=== PATIENT | female | born 1960 | race Caucasian/White ===

== ENCOUNTER → 2017-04-08 | Outpatient (CLI) | payer OTHER ==
--- NOTE | 2017-04-09 13:31 | MM ---
Reason for exam: screening (asymptomatic). Last mammogram was performed 1 year and 5 months ago. History: Patient is postmenopausal. Physical Findings: A clinical breast exam by your physician is recommended on an annual basis and results should be correlated with mammographic findings. MG 3D Screening Mammo W/Cad Bilateral CC, MLO, and XCCL view(s) were taken. Prior study comparison: October 26, 2015, bilateral MG 3d screening mammo w/cad. November 28, 2013, bilateral digital screening mammo w/CAD. The breast tissue is heterogeneously dense. This may lower the sensitivity of mammography. Benign calcifications. There is chronic nodularity in the left breast. No significant changes when compared with prior studies. ASSESSMENT: Benign, BI-RAD 2 RECOMMENDATION: Routine screening mammogram of both breasts in 1 year.
== END | disposition home or self-care (01) ==
LOC: RADMAMWWP 16:15
PROVIDERS: ATTEND Obstetrics & Gynecology
DX: Z12.31 Encounter for screening mammogram for malignant neoplasm of breast (principal)
CPT/HCPCS: 77063; G0202

== ENCOUNTER → 2019-07-09 | Outpatient (CLI) | payer OTHER ==
[2019-07-09 08:30] LABS: Basophils # (A) 0.1 k/uL (0-0.2); Basophils % (A) 1 %; Eosinophils # (A) 0.4 k/uL (0-0.7); Eosinophils % (A) 5 %; HCT 42.8 % (34.0-46.0); HGB 14.3 gm/dL (11.4-16.0); Lymphocytes # (A) 1.2 k/uL (1.0-4.8); Lymphocytes % (A) 16 %; MCH 28.6 pg (25.0-35.0); MCHC 33.3 g/dL (31.0-37.0); MCV 85.9 fL (80.0-100.0); Mean Platelet Volume 7.5; Monocytes # (A) 0.4 k/uL (0-1.0); Monocytes % (A) 5 %; Neutrophils # (A) 5.7 k/uL (1.3-7.7); Neutrophils % (A) 72 %; Platelet Count 300 k/uL (150-450); RBC 4.98 m/uL (3.80-5.40); WBC 7.9 k/uL (3.8-10.6)
[2019-07-09 16:57] LABS: African American GFR (CKD) 109.9 (60.0-200.0); Albumin 4.5 g/dL (3.80-4.90); Albumin/Globulin Ratio 2.5 (1.60-3.17); Anion Gap 10.3 mmol/L (4.00-12.00); Calcium 9.2 mg/dL (8.7-10.3); Carbon Dioxide 24.7 mmol/L (21.6-31.8); Chol/HDL Ratio 3.59; Globulin 1.8 g/dL (1.6-3.3); Potassium 4.7 mmol/L (3.5-5.5); Total Bilirubin 0.5 mg/dL (0.2-1.2); Total Protein 6.3 g/dL (6.2-8.2)
[2019-07-09 17:05] LABS: T4, Free (Free Thyroxine) 1.1 ng/dL (0.80-1.80)
== END | disposition home or self-care (01) ==
LOC: LABWHC1 08:00
PROVIDERS: ATTEND Nurse Practitioner Family
DX: E11.9 Type 2 diabetes mellitus without complications (principal); E87.8 Other disorders of electrolyte and fluid balance, not elsewhere classified; E78.5 Hyperlipidemia, unspecified; D64.9 Anemia, unspecified; R79.9 Abnormal finding of blood chemistry, unspecified
CPT/HCPCS: 36415; 80053; 80061; 82306; 84439; 84443; 85025

== ENCOUNTER 2019-08-14 10:59 | Emergency (ER) | payer OTHER ==
[2019-08-14 11:11] VITALS: BP 147/90; PULSE 85; RESP 16; TEMP 99.1
[2019-08-14] MEDS ORDERED: KETOROLAC 60 MG/2 ML VIAL IM STA (12:17)
[2019-08-14] MEDS ORDERED: DEXAMETHASONE 4 MG TAB PO STA (12:17)
--- NOTE | 2019-08-14 12:19 | ED ---
ENT HPI - General Source: patient Mode of arrival: ambulatory Limitations: no limitations <Mercedes Gould - Last Filed: 08/14/19 19:51> <Jo García - Last Filed: 08/17/19 00:01> - General Chief complaint: ENT Stated complaint: throat pain Time Seen by Provider: 08/14/19 11:14 - History of Present Illness Initial comments: Patient is a 59-year-old female presenting to the emergency Department with complaints of a sore throat that started this morning. Patient states she's been feeling more fatigued yesterday and today. Patient denies fever, chills, chest pain, cough, congestion, abdominal pain, nausea, vomiting. Patient admits to having the flu vaccine approximately 2 weeks ago. Patient denies any recent sick contacts. (Mercedes Gould) - Related Data Home Medications Medication Instructions Recorded Confirmed Antivert Unknown Dose 1 tab PO DAILY PRN 10/20/16 Aspirin [Adult Low Dose Aspirin EC] 81 mg PO DAILY 10/20/16 10/20/16 Atenolol 25 mg PO QAM 10/20/16 10/23/16 Cyanocobalamin [Vitamin B-12] 1 tab PO DAILY 10/20/16 10/23/16 Furosemide 20 mg PO QAM 10/20/16 10/23/16 Lipitor Unknown Dose 80 mg PO HS 10/20/16 10/23/16 Sertraline [Zoloft] 25 mg PO QAM 10/20/16 10/23/16 metFORMIN HCL [Glucophage] 850 mg PO QAM 10/20/16 10/23/16 Allergies Allergy/AdvReac Type Severity Reaction Status Date / Time No Known Allergies Allergy Verified 08/14/19 11:11 Review of Systems ROS Other: All systems not noted in ROS Statement are negative. <Mercedes Gould - Last Filed: 08/14/19 19:51> ROS Other: All systems not noted in ROS Statement are negative. <Jo García - Last Filed: 08/17/19 00:01> ROS Statement: Those systems with pertinent positive or pertinent negative responses have been documented in the HPI. Past Medical History Past Medical History: Diabetes Mellitus, Hyperlipidemia, Hypertension Additional Past Medical History / Comment(s): COLON POLYPS. VERTIGO. DIVERTICULITIS. History of Any Multi-Drug Resistant Organisms: None Reported Past Surgical History: Section, Cholecystectomy Past Anesthesia/Blood Transfusion Reactions: Family History of Problems w/ Anesthesia, Motion Sickness Additional Past Anesthesia/Blood Transfusion Reaction / Comment(s): BLOOD NEPHEW HAS MALIGNANT HYPERTHERMIA. Past Psychological History: Depression Smoking Status: Former smoker Past Alcohol Use History: Rare Past Drug Use History: None Reported <Mercedes Gould - Last Filed: 08/14/19 19:51> General Exam Limitations: no limitations <Mercedes Gould - Last Filed: 08/14/19 19:51> - General Exam Comments Initial Comments: GENERAL: Well-appearing, well-nourished and in no acute distress. HEAD: Atraumatic, normocephalic. EYES: Pupils equal round and reactive to light, extraocular movements intact, sclera anicteric, conjunctiva are normal. ENT: TMs normal, nares patent, oropharynx slightly erythematous without exudates. Moist mucous membranes. NECK: Normal range of motion, supple without lymphadenopathy or JVD. LUNGS: Breath sounds clear to auscultation bilaterally and equal. No wheezes rales or rhonchi. HEART: Regular rate and rhythm without murmurs, rubs or gallops. ABDOMEN: Soft, nontender, normoactive bowel sounds. No guarding, no rebound. No masses appreciated. : Deferred EXTREMITIES: Normal range of motion, no pitting or edema. No clubbing or cyanosis. NEUROLOGICAL: Cranial nerves II through XII grossly intact. Normal speech, normal gait. PSYCH: Normal mood, normal affect. SKIN: Warm, Dry, normal turgor, no rashes or lesions noted. (Mercedes Gould) Course Vital Signs 08/14/19 11:10 Temperature 99.1 F Pulse Rate 85 Respiratory 16 Rate Blood Pressure 147/90 O2 Sat by Pulse 96 Oximetry Medical Decision Making <Mercedes Gould - Last Filed: 08/14/19 19:51> <Jo García - Last Filed: 08/17/19 00:01> - Medical Decision Making Patient is a 59-year-old female presenting with sore throat 1 day. Vital signs are stable, afebrile. Strep is negative today. Discussed with patient is most likely a viral pharyngitis. Patient was given a Toradol and course of steroids for pain relief. Patient is stable for discharge at this time. She is in agreement this plan of care. Patient will follow up with PCP next week if symptoms persist. Return parameters were discussed with the patient she verbalized understanding. Case discussed with Dr. García. (Mercedes Gould) I was available for consultation in the emergency department. The history and physical exam were done by the midlevel provider. I was consulted for this patients care. I reviewed the case with the midlevel provider and based on their presentation of the patient, I agree with the assessment, medical decision making and plan of care as documented. Chart was dictated using [employer] dictation software. Attempts were made to correct any dictation errors however some typographical errors may persist. (Jo García) - Lab Data Lab Results 08/14/19 Range/Units 11:32 Group A Strep Rapid Negative (Negative) Disposition Is patient prescribed a controlled substance at d/c from ED?: No <Mercedes Gould - Last Filed: 08/14/19 19:51> <Jo García - Last Filed: 08/17/19 00:01> Clinical Impression: Acute viral pharyngitis Disposition: HOME SELF-CARE Condition: Stable Instructions (If sedation given, give patient instructions): Pharyngitis (ED) Additional Instructions: Please return to the Emergency Department if symptoms worsen or any other concerns. Alternate between Motrin and Tylenol for pain relief. Referrals: Cherelle Figueroa MD [Primary Care Provider] - 1-2 days
== END 2019-08-14 12:32 | disposition home or self-care (01) ==
LOC: EC 10:59
DX: J02.8 Acute pharyngitis due to other specified organisms (principal); B97.89 Other viral agents as the cause of diseases classified elsewhere; E11.9 Type 2 diabetes mellitus without complications; E78.5 Hyperlipidemia, unspecified; I10 Essential (primary) hypertension; F32.9 Major depressive disorder, single episode, unspecified; Z79.82 Long term (current) use of aspirin; Z79.84 Long term (current) use of oral hypoglycemic drugs; Z79.899 Other long term (current) drug therapy; Z87.891 Personal history of nicotine dependence
CPT/HCPCS: 87081; 87430; 99283; 96372; J8540; J1885

== ENCOUNTER → 2020-09-07 | Outpatient (CLI) | payer OTHER ==
--- NOTE | 2020-09-11 08:39 | MM ---
Reason for exam: screening (asymptomatic). Last mammogram was performed 1 year and 7 months ago. History: Patient is postmenopausal. Physical Findings: A clinical breast exam by your physician is recommended on an annual basis and results should be correlated with mammographic findings. MG 3D Screening Mammo W/Cad Bilateral CC and MLO view(s) were taken. Prior study comparison: February 03, 2019, bilateral MG 3d screening mammo w/cad. April 08, 2017, bilateral MG 3d screening mammo w/cad. There are scattered fibroglandular densities. No significant changes when compared with prior studies. ASSESSMENT: Negative, BI-RAD 1 RECOMMENDATION: Routine screening mammogram of both breasts in 1 year.
== END | disposition home or self-care (01) ==
LOC: RADMAMWWP 07:00
PROVIDERS: ATTEND Internal Medicine
DX: Z12.31 Encounter for screening mammogram for malignant neoplasm of breast (principal)
CPT/HCPCS: 77063; 77067

== ENCOUNTER → 2021-10-08 | Outpatient (CLI) | payer OTHER ==
--- NOTE | 2021-10-10 11:51 | MM ---
Reason for exam: screening (asymptomatic). Last mammogram was performed 1 year and 1 month ago. History: Patient is postmenopausal. Physical Findings: A clinical breast exam by your physician is recommended on an annual basis and results should be correlated with mammographic findings. MG 3D Screening Mammo W/Cad Bilateral CC and MLO view(s) were taken. Prior study comparison: September 07, 2020, bilateral MG 3d screening mammo w/cad. February 03, 2019, bilateral MG 3d screening mammo w/cad. There are scattered fibroglandular densities. There is chronic nodularity in the left breast. No significant changes when compared with prior studies. ASSESSMENT: Benign, BI-RAD 2 RECOMMENDATION: Routine screening mammogram of both breasts in 1 year.
== END | disposition home or self-care (01) ==
LOC: RADMAMWWP 15:43
PROVIDERS: ATTEND Family Medicine
DX: Z12.31 Encounter for screening mammogram for malignant neoplasm of breast (principal)
CPT/HCPCS: 77063; 77067

== ENCOUNTER → 2022-12-09 | Outpatient (CLI) | payer OTHER ==
--- NOTE | 2022-12-10 09:01 | MM ---
Reason for Exam: Screening (asymptomatic). Last mammogram was performed 1 year(s) and 2 month(s) ago. Patient History: Menarche at age 12. First Full-Term at age 29. Postmenopausal. Risk Values: Katie 5 year model risk: 1.7%. NCI Lifetime model risk: 7.7%. Prior Study Comparison: 02/03/2019 Bilateral Screening Mammogram, [facility]. 09/07/2020 Bilateral Screening Mammogram, [facility]. 10/08/2021 Bilateral Screening Mammogram, [facility]. Tissue Density: The breast tissue is almost entirely fat. Findings: Analyzed By CAD. There is no suspicious group of microcalcifications or new suspicious mass in either breast. Overall Assessment: Negative, BI-RAD 1 Management: Screening Mammogram of both breasts in 1 year. A clinical breast exam by your physician is recommended on an annual basis and results should be correlated with mammographic findings. [facility] will attempt to contact patient to return for supplemental views and ultrasound if indicated. Electronically signed and approved by: Garrison Espinal DO
== END | disposition home or self-care (01) ==
LOC: RADMAMWWP 16:16
PROVIDERS: ATTEND Internal Medicine
DX: Z12.31 Encounter for screening mammogram for malignant neoplasm of breast (principal); Z78.0 Asymptomatic menopausal state
CPT/HCPCS: 77063; 77067

== ENCOUNTER 2023-04-11 06:36 | Emergency (ER) | payer OTHER ==
[2023-04-11 06:41] VITALS: BP 145/86; PULSE 66; RESP 16; TEMP 97.5
[2023-04-11] MEDS ORDERED: ACETAMINOPHEN TAB 500 MG TAB PO STA (07:12)
--- NOTE | 2023-04-11 07:17 | ED ---
General Adult HPI - General Chief complaint: Urogenital Stated complaint: Blood in urine and pain Time Seen by Provider: 04/11/23 07:01 Source: patient, RN notes reviewed, old records reviewed Mode of arrival: ambulatory Limitations: no limitations - History of Present Illness Initial comments: 63-year-old female presenting with lower abdominal discomfort, hematuria. Symptoms began this morning. No associated fever. No vomiting. Patient denies current bowel issues. Pain and discomfort in his bilateral lower abdomen. She has remote history of kidney stones. - Related Data Home Medications Medication Instructions Recorded Confirmed Antivert Unknown Dose 1 tab PO DAILY PRN 10/20/16 Aspirin [Adult Low Dose Aspirin EC] 81 mg PO DAILY 10/20/16 10/20/16 Cyanocobalamin [Vitamin B-12] 1 tab PO DAILY 10/20/16 10/23/16 Furosemide 20 mg PO QAM 10/20/16 10/23/16 Lipitor Unknown Dose 80 mg PO HS 10/20/16 10/23/16 Sertraline [Zoloft] 25 mg PO QAM 10/20/16 10/23/16 atenoloL 25 mg PO QAM 10/20/16 10/23/16 metFORMIN HCL [Glucophage] 850 mg PO QAM 10/20/16 10/23/16 Previous Rx's Medication Instructions Recorded Ibuprofen [Motrin] 600 mg PO Q8HR PRN #24 tab 04/11/23 Tamsulosin [Flomax] 0.4 mg PO DAILY #7 cap 04/11/23 Allergies Allergy/AdvReac Type Severity Reaction Status Date / Time No Known Allergies Allergy Verified 08/14/19 11:11 Review of Systems ROS Statement: Those systems with pertinent positive or pertinent negative responses have been documented in the HPI. ROS Other: All systems not noted in ROS Statement are negative. Past Medical History Past Medical History: Diabetes Mellitus, Hyperlipidemia, Hypertension Additional Past Medical History / Comment(s): COLON POLYPS. VERTIGO. DIVERTICULITIS. History of Any Multi-Drug Resistant Organisms: None Reported Past Surgical History: Section, Cholecystectomy Past Anesthesia/Blood Transfusion Reactions: Family History of Problems w/ Anesthesia, Motion Sickness Additional Past Anesthesia/Blood Transfusion Reaction / Comment(s): BLOOD NEPHEW HAS MALIGNANT HYPERTHERMIA. Past Psychological History: Depression Past Alcohol Use History: Rare Past Drug Use History: None Reported General Exam Limitations: no limitations General appearance: alert, in no apparent distress Head exam: Present: atraumatic, normocephalic Eye exam: Present: normal appearance, PERRL ENT exam: Present: normal exam Neck exam: Present: normal inspection. Absent: tenderness, meningismus Respiratory exam: Present: normal lung sounds bilaterally. Absent: respiratory distress, wheezes Cardiovascular Exam: Present: regular rate, normal rhythm GI/Abdominal exam: Present: soft, tenderness (Bilateral lower abdominal tenderness to palpation, worse on the left). Absent: distended Back exam: Present: normal inspection. Absent: CVA tenderness (R), CVA tenderness (L) Neurological exam: Present: alert, oriented X3, CN II-XII intact. Absent: motor sensory deficit Psychiatric exam: Present: normal affect, normal mood Skin exam: Present: warm, dry, intact. Absent: cyanosis, diaphoretic Course Vital Signs 04/11/23 06:38 Temperature 97.5 F L Pulse Rate 66 Respiratory 16 Rate Blood Pressure 145/86 O2 Sat by Pulse 95 Oximetry Medical Decision Making - Medical Decision Making Was pt. sent in by a medical professional or institution (, PA, [employer], urgent care, hospital, or care home...) When possible be specific @ -[No] Did you speak to anyone other than the patient for history (EMS, parent, family, police, friend...)? What history was obtained from this source @ -[No] Did you review nursing and triage notes (agree or disagree)? Why? @ -[I reviewed and agree with nursing and triage notes] Were old charts reviewed (outside hosp., previous admission, EMS record, old EKG, old radiological studies, urgent care reports/EKG's, care home records)? Report findings @ -[No old charts were reviewed] Differential Diagnosis (chest pain, altered mental status, abdominal pain women, abdominal pain men, vaginal bleeding, weakness, fever, dyspnea, syncope, headache, dizziness, GI bleed, back pain, seizure, CVA, palpatations, mental health, musculoskeletal)? @ -Differential Abdominal Pain Women: Appendicitis, Cholecystitis, diverticulosis, ischemic bowel, pancreatitis, hepatitis, UTI, gastroenteritis, AAA, incarcerated hernia, bowel obstruction, constipation, inflammatory bowel, hepatitis, peptic ulcer disease, splenic infarction, perforated viscus, , kidney stone, placenta abruption, @ -[As above] X-rays interpreted by me (1pt min.). @ -[Negative for acute process CT interpreted by me (1pt min.). @ -CT showing obstructing renal calculus at the left UVJ 5.3 mm. U/S interpreted by me (1pt. min.). @ -[None done] What testing was considered but not performed or refused? (CT, X-rays, U/S, labs)? Why? @ -[None] What meds were considered but not given or refused? Why? @ -[None] Did you discuss the management of the patient with other professionals (professionals i.e. , PA, [employer], lab, RT, psych nurse, criminal justice social worker, novelty dipper, teacher, uniform patrol police officer, manager case management)? Give summary @ -[No] Was smoking cessation discussed for >3mins.? @ -[No] Was critical care preformed (if so, how long)? @ -[No] Were there social determinants of health that impacted care today? How? (Homeles sness, low income, unemployed, alcoholism, drug addiction, transportation, low edu. Level, literacy, decrease access to med. care, senior living, rehab)? @ -[No] Was there de-escalation of care discussed even if they declined (Discuss DNR or withdrawal of care, Hospice)? DNR status @ -[No] What co-morbidities impacted this encounter? (DM, HTN, Smoking, COPD, CAD, Cancer, CVA, ARF, Chemo, Hep., AIDS, mental health diagnosis, sleep apnea, morbid obesity)? @Diabetes Was patient admitted / discharged? Hospital course, mention meds given and route, prescriptions, significant lab abnormalities, going to OR and other pertinent info. @63-year-old female with lower abdominal pain, hematuria. Normal CBC, normal CMP, urinalysis greater than [id number] red cells and calcium oxalate crystals. CT showing obstructing stone 5.3 mm. Patient's pain is improved with Tylenol and Toradol. She will be given a urine strainer and given urology follow-up. Return parameters discussed. Undiagnosed new problem with uncertain prognosis? @ -[No] Drug Therapy requiring intensive monitoring for toxicity (Heparin, Nitro, Insulin, Cardizem)? @ -[No] Were any procedures done? @ -[No] Diagnosis/symptom? @ -Obstructing renal calculus Acute, or Chronic, or Acute on Chronic? @Acute Uncomplicated (without systemic symptoms) or Complicated (systemic symptoms)? @ -Complicated Side effects of treatment? @ -[No] Exacerbation, Progression, or Severe Exacerbation? @ -[No] Poses a threat to life or bodily function? How? (Chest pain, [place], [place], pneumonia, PE, COPD, DKA, ARF, appy, cholecystitis, CVA, Diverticulitis, Homicidal, Suicidal, threat to staff... and all critical care pts) @ -Low-risk - Lab Data Result diagrams: 04/11/23 08:28 04/11/23 08:28 Lab Results 04/11/23 04/11/23 04/11/23 Range/Units 07:00 08:28 08:28 WBC 9.4 (3.8-10.6) k/uL RBC 4.54 (3.80-5.40) m/uL Hgb 13.3 (11.4-16.0) gm/dL Hct 39.5 (34.0-46.0) % MCV 87.0 (80.0-100.0) fL MCH 29.2 (25.0-35.0) pg MCHC 33.6 (31.0-37.0) g/dL RDW 13.7 (11.5-15.5) % Plt Count 229 (150-450) k/uL MPV 8.0 Neutrophils % 79 % Lymphocytes % 8 % Monocytes % 6 % Eosinophils % 4 % Basophils % 1 % Neutrophils # 7.4 (1.3-7.7) k/uL Lymphocytes # 0.8 L (1.0-4.8) k/uL Monocytes # 0.6 (0-1.0) k/uL Eosinophils # 0.4 (0-0.7) k/uL Basophils # 0.1 (0-0.2) k/uL Sodium 138 (137-145) mmol/L Potassium 4.6 (3.5-5.1) mmol/L Chloride 103 (98-107) mmol/L Carbon Dioxide 24 (22-30) mmol/L Anion Gap 11 mmol/L BUN 13 (7-17) mg/dL Creatinine 0.88 (0.52-1.04) mg/dL Est GFR (CKD-EPI)AfAm 81 (>60 ml/min/1.73 sqM) Est GFR (CKD-EPI)NonAf 71 (>60 ml/min/1.73 sqM) Glucose 104 H (74-99) mg/dL Calcium 8.9 (8.4-10.2) mg/dL Total Bilirubin 0.6 (0.2-1.3) mg/dL AST 26 (14-36) U/L ALT 30 (4-34) U/L Alkaline Phosphatase 92 (38-126) U/L Total Protein 6.7 (6.3-8.2) g/dL Albumin 3.9 (3.5-5.0) g/dL Urine Color Red Urine Appearance Cloudy H (Clear) Urine pH 5.0 (5.0-8.0) Ur Specific Elmer 1.019 (1.001-1.035) Urine Protein 1+ H (Negative) Urine Glucose (UA) Negative (Negative) Urine Ketones Negative (Negative) Urine Blood Large H (Negative) Urine Nitrite Negative (Negative) Urine Bilirubin Negative (Negative) Urine Urobilinogen <2.0 (<2.0) mg/dL Ur Leukocyte Esterase Small H (Negative) Urine RBC >182 H (0-5) /hpf Urine WBC 4 (0-5) /hpf Calcium Oxalate Crystal Occasional H (None) /hpf Hyaline Casts 14 H (0-2) /lpf Urine Mucus Occasional H (None) /hpf Disposition Clinical Impression: Hydronephrosis with renal and ureteral calculus obstruction, Kidney stone Disposition: HOME SELF-CARE Condition: Good Instructions (If sedation given, give patient instructions): Renal Colic (ED), Kidney Stones (ED) Prescriptions: Tamsulosin [Flomax] 0.4 mg PO DAILY #7 cap Ibuprofen [Motrin] 600 mg PO Q8HR PRN #24 tab PRN Reason: Pain Is patient prescribed a controlled substance at d/c from ED?: No Referrals: Nonstaff,Physician [REFERRING] - 1-2 days Jack Mays MD [STAFF PHYSICIAN] - 1-2 days Time of Disposition: 09:16
[2023-04-11 07:40] LABS: Appearance,Urine Cloudy (Clear); Bilirubin,Urine Negative (Negative); Blood,Urine Large (Negative); Calcium Oxalate Crystals,Urine Occasional /hpf; Color,Urine Red; Glucose,Urine (UA) Negative (Negative); Hyaline Casts,Urine 14 /lpf (0-2); Ketones,Urine Negative (Negative); Leukocyte Esterase,Urine Small (Negative); Mucus,Urine Occasional /hpf; Nitrite,Urine Negative (Negative); Protein,Urine 1+ (Negative); RBC,Urine >182 /hpf (0-5); Specific Gravity,Urine 1.019 (1.001-1.035); Urobilinogen,Urine <2.0 mg/dL (<2.0); WBC,Urine 4 /hpf (0-5)
--- NOTE | 2023-04-11 07:49 | CT ---
EXAMINATION TYPE: CT abdomen pelvis wo con DATE OF EXAM: 04/11/2023 COMPARISON: 214 HISTORY: painful urination with blood. CT DLP: 1459.4 mGycm Examination of the solid and hollow viscera is limited given the lack of contrast. FINDINGS: LUNG BASES: No evidence for nodule. No evidence for infiltrate. LIVER/GB: Gallbladder surgically absent. No space-occupying hepatic lesion. PANCREAS: No pancreatic mass identified. No inflammatory process seen. SPLEEN: No evidence for splenomegaly. No intrasplenic lesions seen. ADRENALS: No adrenal nodules identified. No evidence for thickening. KIDNEYS: No evidence for renal mass. There is [id number] left-sided hydroureteronephrosis secon kassie to the distal left ureteral 5.3 mm calculus which resides approximately 1 cm from the level of U VJ. No additional calculi seen. BOWEL: Appendix has a normal appearance. No evidence of bowel obstruction. No inflammatory process. Lymph nodes: No evidence for adenopathy greater than 1 cm. Abdominal aorta: Atheromatous changes seen. No evidence for aneurysm. Genital organs: No significant abnormality. Other: No significant abnormality. IMPRESSION: There is [id number] left-sided hydroureteronephrosis secondary to the distal left ureteral 5.3 mm calculus which resides approximately 1 cm from the level of UVJ.
[2023-04-11] MEDS ORDERED: KETOROLAC 15 MG/ML 1 ML VIAL IM STA (07:51)
[2023-04-11] MEDS ORDERED: SODIUM CHLORIDE 0.9% 1,000 ML IV ONE (07:53)
[2023-04-11] MEDS ORDERED: ONDANSETRON 4 MG/2 ML VIAL IVP STA (07:53)
[2023-04-11 08:44] LABS: Basophils # (A) 0.1 k/uL (0-0.2); Basophils % (A) 1 %; Eosinophils # (A) 0.4 k/uL (0-0.7); Eosinophils % (A) 4 %; HCT 39.5 % (34.0-46.0); HGB 13.3 gm/dL (11.4-16.0); Lymphocytes # (A) 0.8 k/uL (1.0-4.8); Lymphocytes % (A) 8 %; MCH 29.2 pg (25.0-35.0); MCHC 33.6 g/dL (31.0-37.0); Monocytes # (A) 0.6 k/uL (0-1.0); Monocytes % (A) 6 %; Neutrophils # (A) 7.4 k/uL (1.3-7.7); Neutrophils % (A) 79 %; Platelet Count 229 k/uL (150-450); RBC 4.54 m/uL (3.80-5.40); RDW 13.7 % (11.5-15.5); WBC 9.4 k/uL (3.8-10.6)
--- NOTE | 2023-04-11 08:51 | XR ---
EXAMINATION TYPE: XR KUB DATE OF EXAM: 04/11/2023 COMPARISON: NONE HISTORY: Pain TECHNIQUE: Single supine KUB image of the abdomen is obtained FINDINGS: Small bowel demonstrates no evidence for dilatation or air fluid levels. Gas and fecal material is seen in non-distended colon. No convincing evidence for pneumoperitoneum. No unusual calcifications. The lung bases are clear. The osseous structures are intact. IMPRESSION: 1. Overall nonobstructive bowel gas pattern.
[2023-04-11 09:02] LABS: Albumin 3.9 g/dL (3.5-5.0); Calcium 8.9 mg/dL (8.4-10.2); Potassium 4.6 mmol/L (3.5-5.1); Total Bilirubin 0.6 mg/dL (0.2-1.3); Total Protein 6.7 g/dL (6.3-8.2)
== END 2023-04-11 09:30 | disposition home or self-care (01) ==
LOC: EC 06:36
DX: N13.2 Hydronephrosis with renal and ureteral calculous obstruction (principal); E11.9 Type 2 diabetes mellitus without complications; I10 Essential (primary) hypertension; E78.5 Hyperlipidemia, unspecified; F32.A Depression, unspecified; Z79.84 Long term (current) use of oral hypoglycemic drugs; Z79.82 Long term (current) use of aspirin; Z79.899 Other long term (current) drug therapy; Z90.49 Acquired absence of other specified parts of digestive tract
CPT/HCPCS: 36415; 80053; 85025; 81001; 74018; 74176; 99284; 96374; 96361; 96372; J2405; J1885

== ENCOUNTER → 2023-07-02 | Outpatient (CLI) | payer OTHER ==
[2023-07-02 15:10] LABS: African American GFR (CKD) >90 (>60 ml/min/1.73 sqM); Blood Urea Nitrogen 15 mg/dL (7-17); Non-African American GFR(CKD) 82 (>60 ml/min/1.73 sqM)
--- NOTE | 2023-07-03 11:52 | CT ---
EXAMINATION TYPE: CT urogram wo/w con DATE OF EXAM: 07/02/2023 COMPARISON: 04/11/2023 INDICATION: ACUTE CYSTITIS WITH HEMATURIA AND UTI DLP: 4644.80 mGycm, Automated exposure control for dose reduction was used. CONTRAST: 90ML mL of Isovue 370. Study performed without Oral Contrast TECHNIQUE: Axial images were obtained from above the diaphragm to the pubic rami in the axial plane a t 5 mm thick sections. Reconstructed images are reviewed on the computer in the coronal plane. FINDINGS: Limited CT sections are obtained the lung bases. The lung bases are clear. CT ABDOMEN: Liver: Normal Spleen: Normal splenule is anterior to the spleen Pancreas: Normal Adrenal glands: The adrenal glands are normal. Gallbladder: Surgically absent Kidneys: No masses are evident. No hydronephrosis is present. No cysts are present. No renal stone s are identified. No hydroureter is evident. Dedicated images are performed through the renal collecting system. Three-D reconstructed images perf ormance of computer by the technologist are reviewed. Renal calyces infundibula and renal pelves appear normal. Ureters on sequential images appear unremar kable. The distal right ureter is not visualized during this exam. Urinary bladder is visualized appe ars normal Aorta: Vascular calcification is within the aorta. Inferior vena cava: Normal. CT PELVIS: Loops of bowel within the abdomen and pelvis are normal. Multiple diverticuli without acute diverticu litis are within the sigmoid colon. The study is without oral contrast limiting bowel evaluation. Appendix: Normal as visualized. Urinary bladder: Normal. Surgical clip appears to lie just superior to the urinary bladder. Genitourinary structures: Uterus is normal. Adnexa are normal. Osseous structures: No suspicious lytic or sclerotic lesions. IMPRESSIONS: 1. No suspicious abnormality account for hematuria CT urogram.
== END | disposition home or self-care (01) ==
LOC: RADCTMAIN 14:00
PROVIDERS: ATTEND Internal Medicine
DX: N30.01 Acute cystitis with hematuria (principal)
CPT/HCPCS: 82565; 84520; 74178; 36415; 74400; Q9967

== ENCOUNTER → 2023-08-11 | Outpatient (CLI) | payer OTHER | LOC: PROCWHC3 11:49 | PROVIDERS: ATTEND Internal Medicine | DX: Z53.9 Procedure and treatment not carried out, unspecified reason (principal) ==

== ENCOUNTER 2023-12-25 07:27 | Day surgery (SDC) | payer OTHER ==
[~2023-12-25 07:27] MED LIST: LIDOCAINE 1% (10MG/ML) FOR IV START INTRADERMA PRN; ONDANSETRON 4 MG/2 ML VIAL IVP PRN
[2023-12-25] MEDS: LACTATED RINGERS 1,000 ML IV SCH (07:35)
[2023-12-25 07:57] LABS: Glucose,Whole Blood 101 mg/dL (70-110)
[2023-12-25 08:10] VITALS: TEMP 97.3
[2023-12-25] MEDS ORDERED: LIDOCAINE 1% INJ 10MG/ML (20 ML MDV) ONE (08:59)
[2023-12-25] MEDS ORDERED: PROPOFOL 10 MG/ML 20 ML VIAL IV ONE (08:59)
--- NOTE | 2023-12-25 09:16 | P.PCN ---
Date of Procedure: 12/25/23 Procedure(s) Performed: BRIEF HISTORY: Patient is a 63-year-old pleasant female scheduled for an elective colonoscopy as a part of evaluation of prior history of colon polyps. Last colonoscopy was 6 years ago. PROCEDURE PERFORMED: Colonoscopy. PREOPERATIVE DIAGNOSIS: History of colon polyps. IV sedation per Anesthesia. PROCEDURE: After informed consent was obtained, the patient, was brought into the endoscopy unit. IV sedation was administered by Anesthesia under continuous monitoring. Digital rectal examination was normal. Initially the Olympus CF-160 flexible video colonoscope was then inserted in the rectum, gradually advanced into the cecum without any difficulty. Careful examination was performed as the scope was gradually being withdrawn. Ileocecal valve and the appendiceal orifice were visualized and appeared normal. Prep was excellent. Mucosa of the cecum, ascending colon, transverse colon, descending colon, sigmoid colon, and rectum appeared normal. Moderate left-sided diverticulosis Retroflexion was performed in the rectum and no lesions were seen. The patient tolerated the procedure well. IMPRESSION: Normal-appearing colon from rectum to cecum no evidence of colorectal neoplasia . Moderate left sided diverticulosis. RECOMMENDATIONS: Findings of this examination were discussed with the patient well as her family. She was advised to have a repeat colonoscopy in 10 years..
[2023-12-25 09:53] VITALS: BP 125/83; PULSE 67; RESP 14
== END 2023-12-25 09:49 | disposition home or self-care (01) ==
LOC: ORWHC2ENDO 07:27
PROVIDERS: ATTEND Internal Medicine Gastroenterology
DX: Z12.11 Encounter for screening for malignant neoplasm of colon (principal); K57.30 Diverticulosis of large intestine without perforation or abscess without bleeding; Z86.010 Personal history of colon polyps; I10 Essential (primary) hypertension; E78.5 Hyperlipidemia, unspecified; E11.9 Type 2 diabetes mellitus without complications; Z87.442 Personal history of urinary calculi; F32.A Depression, unspecified; K21.9 Gastro-esophageal reflux disease without esophagitis; Z79.84 Long term (current) use of oral hypoglycemic drugs; Z79.899 Other long term (current) drug therapy
CPT/HCPCS: 45378; J2001; J2704

== ENCOUNTER → 2024-03-01 | Outpatient (CLI) | payer OTHER ==
[~2024-03-01] MED LIST changes: -LIDOCAINE 1% (10MG/ML) FOR IV START INTRADERMA PRN; -ONDANSETRON 4 MG/2 ML VIAL IVP PRN; +REGADENOSON 0.4 MG/5 ML SYRINGE IV PRN
--- NOTE | 2024-03-01 18:22 | CT ---
EXAMINATION TYPE: CT chest wo con DATE OF EXAM: 03/01/2024 COMPARISON: None HISTORY: Solitary pulmonary nodule CT DLP: 397.20 mGycm. Automated Exposure Control for Dose Reduction was Utilized. TECHNIQUE: CT scan of the thorax is performed without IV contrast. FINDINGS: There is a 4.6 mm subpleural parenchymal nodule in the lingula. There are a few scattered micronodule s. There is no abnormal airspace/consolidative density or abnormal interstitial density. There is no pleural effusion, pleural thickening or pneumothorax. The great vessels and chest are normal there is no mediastinal, hilar or axillary adenopathy. Limited scans the upper abdomen reveals cholecystectomy with no other gross abnormality. No focal osseous lesions are seen. IMPRESSION: 1. Multiple sub-5 mm pulmonary nodules. This is a high risk patient, then continued routine screening yearly intervals is demented. 2. No acute cardiopulmonary disease. 3. No interstitial lung disease. 4. No adenopathy.
--- NOTE | 2024-03-01 19:30 | CA ---
Lexiscan Nuclear Stress Test Report Name: Melina Vasquez Exam Date: 03/01/2024 09:37 Exam Location: [facility] Ht (in): 67 Wt (lb): 230 BSA: 2.15 Ordering Phys: Redd Carr MD Referring Phys: Lilly Technologist: Bebeto Zuniga Age: 64 Gender: F : 1960 Procedure CPT: Indications: R93.1 ABNORMAL FINDINGS ON DX IMAGING OF HEART AND ICD-10 Codes: Patient History: Medications: METFORMIN, ATENOLOL, ATORVASTATIN, LOSARTAN Meds past 24 hrs: Pretest Chest Pain: STRESS TEST Lexiscan Protocol Exercise Duration (min:sec): 02:[address] Depressions (mm): Angina Score: Woodard Score: Resting HR (bpm): 65 Peak HR (bpm): 106 Resting BP (mmHg): 141 / 87 Peak BP (mmHg): 200 / 85 MPHR: 156 Target HR: 133 % MPHR: 68 METS: 1.0 Total Dose: Peak Dose: Atropine: Double Product: 14402 BP Response: Stress Termination: PROTOCOL COMPLETE Stress Symptoms: NAUSEA/VOMITING Stress Summary: ECG ANALYSIS Resting ECG: Stress ECG: CONCLUSIONS Normal heart rate response Hypertensive episode, blood pressure 200/85 mmHg associated with nausea No ECG evidence for ischemia No arrhythmias Nuclear portion will be the precipitating Dr. Michael Ayoub MD (Electronically Signed) Final Date: 01 March 2024 19:29
== END | disposition home or self-care (01) ==
LOC: RADCTMAIN 07:29
PROVIDERS: ATTEND Internal Medicine
DX: R93.1 Abnormal findings on diagnostic imaging of heart and coronary circulation (principal); R91.8 Other nonspecific abnormal finding of lung field; F03.90 Unspecified dementia, unspecified severity, without behavioral disturbance, psychotic disturbance, mood disturbance, and anxiety; R11.0 Nausea
CPT/HCPCS: 93017; 71250; 78452; A9500; J2785

== ENCOUNTER → 2024-03-12 | Outpatient (CLI) | payer OTHER ==
[2024-03-12 22:59] LABS: HCT 40.1 % (37.2-46.3); HGB 13.5 g/dL (12.0-15.0); MCH 29.3 pg (27.0-32.0); MCHC 33.7 g/dL (32.0-37.0); MCV 87.2 FL (80.0-97.0); Mean Platelet Volume 10.8 FL (9.5-12.2); NRBC Per 100 WBC 0 X 10*3/uL (0.00-0.01); Platelet Count 266 X 10*3/uL (140-440); RDW 13.1 % (11.5-14.5); WBC 7.08 X 10*3/uL (4.50-10.00)
[2024-03-12 23:07] LABS: Blood Urea Nitrogen 13.1 mg/dL (9.0-27.0); Carbon Dioxide 24.3 mmol/L (21.6-31.8); Chloride 100 mmol/L (96-109); Potassium 4.4 mmol/L (3.5-5.5); Sodium 137 mmol/L (135-145)
== END | disposition home or self-care (01) ==
LOC: LABWHC1 10:53
PROVIDERS: ATTEND Internal Medicine Clinical Cardiac Electrophysiology
DX: Z01.812 Encounter for preprocedural laboratory examination (principal); R94.39 Abnormal result of other cardiovascular function study
CPT/HCPCS: 36415; 80051; 82565; 84520; 85027

== ENCOUNTER 2024-03-29 06:11 | Day surgery (SDC) | payer OTHER ==
[2024-03-29] MEDS ORDERED: ALPRAZolam 0.25 MG TAB PO PRN (06:35)
[2024-03-29] MEDS ORDERED: NITROGLYCERIN SL TABS 0.4 MG TAB SUBLINGUAL PRN (06:35)
[2024-03-29] MEDS ORDERED: ASPIRIN 325 MG TAB PO STA (06:35)
[2024-03-29] MEDS ORDERED: ATORVASTATIN 80 MG TAB PO STA (06:35)
[2024-03-29] MEDS: SODIUM CHLORIDE 0.9% 1,000 ML IV ONE (06:52)
[2024-03-29] MEDS ORDERED: HEPARIN SODIUM,PORCINE 10,000 UNIT in SODIUM CHLORIDE 0.9% 1,000 ML IRRIGATION PRN (07:00)
[2024-03-29] MEDS ORDERED: HEPARIN SODIUM,PORCINE (1 ML) 2,500 UNIT in SODIUM CHLORIDE 0.9% 250 ML IRRIGATION PRN (07:00)
[2024-03-29] MEDS: ALPRAZolam 0.5 MG TAB PO PRN (07:14)
[2024-03-29] MEDS ORDERED: LIDOCAINE 1% INJ 10MG/ML (20 ML MDV) ONE (07:16)
[2024-03-29] MEDS: SODIUM CHLORIDE 0.9% 1,000 ML in EMPTY BAG 1 BAG IV SCH (07:16)
[2024-03-29] MEDS ORDERED: VERAPAMIL 2.5 MG/ML 2 ML AMP ONE (07:16)
[2024-03-29 07:17] LABS: Glucose,Whole Blood 94 mg/dL (70-110)
[2024-03-29] MEDS ORDERED: fentaNYL (PF) 50 MCG/ML 2 ML AMP ONE (07:21)
[2024-03-29] MEDS ORDERED: HEPARIN SODIUM 1,000 UN/ML (10ML VL) ONE (07:21)
[2024-03-29] MEDS: MIDAZOLAM 2 MG/2 ML VIAL IVP ONE ×2 (07:28→07:34)
[2024-03-29] MEDS: fentaNYL (PF) 50 MCG/ML 2 ML AMP IVP ONE ×2 (07:29→07:34)
[2024-03-29] MEDS: LIDOCAINE 1% INJ 10MG/ML (5 ML VIAL-PF) SQ ONE (07:32)
[2024-03-29] MEDS: VERAPAMIL SYRINGE (5 MG/10 ML) INTRAARTER ONE (07:33)
[2024-03-29] MEDS: HEPARIN SODIUM 1,000 UN/ML (10ML VL) IVP ONE (07:37)
[2024-03-29 07:52] VITALS: RESP 16; TEMP 98.6
[2024-03-29] MEDS: IOPAMIDOL-370 100ML BTL INJ ONE (08:10)
[2024-03-29] MEDS: ADENOSINE 90 MG in SODIUM CHLORIDE 0.9% 60 ML IVP ONE (08:11)
[2024-03-29 11:37] VITALS: BP 126/78; PULSE 72
--- NOTE | 2024-03-29 15:09 | P.CARDCATH ---
Description of Procedure: PROCEDURES PERFORMED: Left heart catheterization, bilateral coronary angiography, ultrasound guided arterial access, iFR/FFR of LAD INDICATION: Abnormal stress test, abnormal CT calcium score CONSENT:I have discussed the risks, benefits and alternative therapies for the above-mentioned procedure and for both sedation/analgesia as well as necessary blood product administration, if indicated, as they pertain to this patient. The patient has indicated understanding and acceptance of the risks and procedures discussed. PROCEDURE: After the risks, benefits and alternatives of the above mentioned procedure explained in detail with the patient, informed consent was obtained. Patient was taken to the catheterization lab and prepped and draped in usual fashion. Ultrasound guidance was used to assess for arterial access. 1% lidocaine was used to anesthetize the right radial artery. A 6-Comoran sheath was placed in the right radial artery using modified Seldinger technique and ultrasound guidance. Left coronary angiography was performed with a 5-Comoran JL 3.5 catheter and right coronary angiography was performed with a 5-Comoran FR5 catheter in various views. A 5-Comoran FR5 catheter was inserted into the left ventricle and pressure measurements were obtained. The decision was made to perform functional assessment of the LAD. Heparin was given. Using the FL 3.5 catheter, 0.014 pressure wire was advanced in the left main and then normalized. He was then advanced 1 cm distal to the calcified long LAD mid segment. iFR was initially performed and was 0.89 however there was drift noted with pullback and therefore this was repeated after renormalization and was normal at 0.91. Given some discrepancy with abnormal stress test in the LAD territory, additional FFR was recommended. After infusion with adenosine, with peak hyperemia FFR was 0.83. The right radial sheath was removed and a TR band was placed with hemostasis achieved. The patient tolerated the procedure well. Patient was transported back to the post catheterization holding area in stable condition. Conscious Sedation: Patient was monitored under the direct supervision of myself for conscious sedation using Versed and fentanyl for a total duration of 43 minutes HEMODYNAMICS: Ao: 107/72 LV: 104/2, LVEDP 12 SELECTIVE CORONARY ARTERIOGRAPHY: LEFT MAIN: The left main is a large caliber vessel which bifurcates into the LAD and circumflex. There is no significant stenosis. LEFT ANTERIOR DESCENDING CORONARY ARTERY: LAD is a large caliber vessel which wraps around to the apex. There is a long area of mid LAD 50% stenosis. LEFT CIRCUMFLEX CORONARY ARTERY: Left circumflex is a large caliber vessel without significant stenosis. The circumflex gives off the PDA and is the dominant vessel. RIGHT CORONARY ARTERY: The right coronary artery is a small caliber vessel which gives off an acute marginal branch and is a non dominant vessel. There is no significant stenosis. FINAL IMPRESSION: 1. CAD as described above including long calcified lesion of approximately 30 mm mid LAD 50% stenosis 2. Normal left sided filling pressures 3. Normal iFR/FFR 4. Aspirin allergy PLAN: 1. Aggressive risk factor modification per most recent ACC/AHA guidelines. 2. Patient having typical anginal symptoms of chest heaviness worse with exertion and improved with rest. She does have significant LAD disease and abnormal stress test and this may be a result of microvascular ischemia. With normal iFR and FFR would trial medical therapy before entertaining any possible stent especially given her aspirin allergy. If she did need stenting would desensitize patient to aspirin first. Trial of Imdur.
== END 2024-03-29 12:25 ==
LOC: CATHCVL 06:11
PROVIDERS: ATTEND Internal Medicine
DX: I25.118 Atherosclerotic heart disease of native coronary artery with other forms of angina pectoris (principal); Z88.6 Allergy status to analgesic agent; E11.9 Type 2 diabetes mellitus without complications; E78.5 Hyperlipidemia, unspecified; Z79.84 Long term (current) use of oral hypoglycemic drugs; Z79.02 Long term (current) use of antithrombotics/antiplatelets; Z79.899 Other long term (current) drug therapy
CPT/HCPCS: 93571; 93458; 76937; 99152; 99153 ×2; C1769 ×2; C1894; J2250; J2001; J3010; J1644; J0153; Q9967

== ENCOUNTER 2024-03-31 16:41 | Observation (INO) | payer OTHER ==
--- NOTE | 2024-03-31 17:16 | ED ---
Chest Pain HPI - General Source: patient, RN notes reviewed Mode of arrival: ambulatory Limitations: no limitations <Elizabeth Hargrove - Last Filed: 03/31/24 17:12> - General Source: RN notes reviewed, old records reviewed Mode of arrival: ambulatory Limitations: no limitations - History of Present Illness MD Complaint: chest pain -: days(s) Onset: during rest, during exertion Pain Location: substernal, left chest Pain Radiation: none Severity: moderate Severity scale (1-10): 4 Quality: tightness, aching, heaviness Consistency: constant Improves With: nothing Worsens With: nothing <Gt Villegas - Last Filed: 04/02/24 23:11> - General Chief Complaint: Chest Pain Stated Complaint: Chest Pain Time Seen by Provider: 03/31/24 17:00 - History of Present Illness Initial Comments: Quick [id number] female with history of ACS presenting to the ER with chief complaint of chest pain x 1 day with chest congestion and cough. Patient states she had a heart catheterization [address] Sánchez. States that she has had this pain previously and was related to angina. Patient states she takes Plavix daily. (Elizabeth Hargrove) This is a 64-year-old female to the ER for evaluation of chest pain cough and congestion for day with recent cardiac catheterization. Patient has had persistent if not worse chest pain noted yesterday (Gt Villegas) - Related Data Home Medications Medication Instructions Recorded Confirmed atenoloL 25 mg PO DAILY 10/20/16 03/31/24 metFORMIN HCL [Glucophage] 850 mg PO BID 10/20/16 03/31/24 Atorvastatin [Lipitor] 80 mg PO HS 07/27/23 03/31/24 Ezetimibe [Zetia] 10 mg PO DAILY 07/27/23 03/31/24 Losartan [Cozaar] 50 mg PO DAILY 07/27/23 03/31/24 Sertraline [Zoloft] 100 mg PO DAILY 07/27/23 03/31/24 Clopidogrel [Plavix] 75 mg PO DAILY 03/25/24 03/31/24 Benzonatate [Tessalon Perle] 200 mg PO DIRECTED PRN 03/31/24 03/31/24 Isosorbide Mononitrate ER [Imdur] 30 mg PO HS 03/31/24 03/31/24 Semaglutide [Ozempic] 2 mg SQ TU 03/31/24 03/31/24 Previous Rx's Medication Instructions Recorded Nitroglycerin Sl Tabs [Nitrostat] 0.4 mg SUBLINGUAL Q5M PRN #25 tab 04/01/24 Allergies Allergy/AdvReac Type Severity Reaction Status Date / Time acetaminophen [From Tylenol] Allergy Rash/Hives Verified 03/31/24 19:49 aspirin Allergy Rash/Hives Verified 03/31/24 19:49 Review of Systems ROS Other: All systems not noted in ROS Statement are negative. <Elizabeth Hargrove - Last Filed: 03/31/24 17:12> ROS Other: All systems not noted in ROS Statement are negative. <Gt Villegas - Last Filed: 04/02/24 23:11> ROS Statement: Those systems with pertinent positive or pertinent negative responses have been documented in the HPI. Past Medical History Past Medical History: Diabetes Mellitus, GERD/Reflux, Hyperlipidemia, Hypertension, Renal Disease Additional Past Medical History / Comment(s): Pt had positive stress test. COLON POLYPS., DIVERTICULITIS., VERTIGO, KIDNEY STONE, UTI's History of Any Multi-Drug Resistant Organisms: ESBL Date of last positivie culture/infection: 09/01/23 MDRO Source:: Urine Past Surgical History: Section, Cholecystectomy Past Anesthesia/Blood Transfusion Reactions: Family History of Problems w/ Anesthesia, Motion Sickness Additional Past Anesthesia/Blood Transfusion Reaction / Comment(s): BLOOD NEPHEW HAS MALIGNANT HYPERTHERMIA. Past Psychological History: Depression Smoking Status: Former smoker - Past Family History Father Family Medical History: Cancer, Liver Disease Additional Family Medical History / Comment(s): Esophageal cancer Mother Family Medical History: Hypertension <Elizabeth Hargrove - Last Filed: 03/31/24 17:12> General Exam Limitations: no limitations <Elizabeth Hargrove - Last Filed: 03/31/24 17:12> General appearance: alert, in no apparent distress Head exam: Present: atraumatic, normocephalic, normal inspection Eye exam: Present: normal appearance, PERRL, EOMI. Absent: scleral icterus, conjunctival injection, periorbital swelling ENT exam: Present: normal exam, mucous membranes moist Neck exam: Present: normal inspection. Absent: tenderness, meningismus, lymphadenopathy Respiratory exam: Present: normal lung sounds bilaterally. Absent: respiratory distress, wheezes, rales, rhonchi, stridor Cardiovascular Exam: Present: regular rate, normal rhythm, normal heart sounds. Absent: systolic murmur, diastolic murmur, rubs, gallop, clicks GI/Abdominal exam: Present: soft, normal bowel sounds. Absent: distended, tenderness, guarding, rebound, rigid Extremities exam: Present: normal inspection, full ROM, normal capillary refill. Absent: tenderness, pedal edema, joint swelling, calf tenderness Back exam: Present: normal inspection Neurological exam: Present: alert, oriented X3, CN II-XII intact Psychiatric exam: Present: normal affect, normal mood Skin exam: Present: warm, dry, intact, normal color. Absent: rash <Gt Villegas - Last Filed: 04/02/24 23:11> - General Exam Comments Initial Comments: Visual Physical Exam Vital signs reviewed General: Well-appearing, nontoxic, no acute distress. Head: Normocephalic, atraumatic Eyes: PERRLA, EOMI ENT: Airway patent Chest: Nonlabored breathing Skin: No visual rash, normal skin tone Neuro: Alert and oriented 3 Musculoskeletal: No gross abnormalities (Elizabeth Hargrove) Course <Gt Villegas - Last Filed: 04/02/24 23:11> Vital Signs 03/31/24 03/31/24 03/31/24 16:42 19:45 20:38 Temperature 99.6 F 98.9 F Pulse Rate 86 63 71 Respiratory 16 16 16 Rate Blood Pressure 106/58 98/53 119/70 O2 Sat by Pulse 95 93 L 91 L Oximetry 03/31/24 03/31/24 04/01/24 21:00 23:00 01:37 Temperature Pulse Rate 65 76 74 Respiratory 16 16 18 Rate Blood Pressure 110/69 113/62 O2 Sat by Pulse 92 L 95 Oximetry 04/01/24 04/01/24 04/01/24 01:43 04:30 06:54 Temperature Pulse Rate 77 85 74 Respiratory 18 18 16 Rate Blood Pressure 127/76 122/67 O2 Sat by Pulse 93 L 93 L Oximetry - Reevaluation(s) Reevaluation #1: 03/31/24 21:32 Medical records reviewed (Gt Villegas) Reevaluation #2: 03/31/24 21:32 Patient symptoms unchanged (Gt Villegas) Reevaluation #3: 03/31/24 21:32 Patient informed of results and questions answered (Gt Villegas) Reevaluation #4: 03/31/24 21:32 Was pt. sent in by a medical professional or institution (JOSE CARLOS Nguyen, AUTOMAT WATCHER, urgent care, hospital, or skilled nursing...) When possible be specific @ -no Did you speak to anyone other than the patient for history (EMS, parent, family, police, friend...)? What history was obtained from this source @ -no Did you review nursing and triage notes (agree or disagree)? Why? @ -agree Are old charts reviewed (outside hosp., previous admission, EMS record, old EKG, old radiological studies, urgent care reports/EKG's, skilled nursing records)? Report findings @ -yes Differential Diagnosis (chest pain, altered mental status, abdominal pain women, abdominal pain men, vaginal bleeding, weakness, fever, dyspnea, syncope, headache, dizziness, GI bleed, back pain, seizure, CVA, palpatations, mental health, musculoskeletal)? @ -prior EKG interpreted by me (3pts min.). @ -yes X-rays interpreted by me (1pt min.). @ -yes negative for acute disease CT interpreted by me (1pt min.). @ -no U/S interpreted by me (1pt. min.). @ -no What testing was considered but not performed or refused? (CT, X-rays, U/S, labs)? Why? @ -none What meds were considered but not given or refused? Why? @ -none Did you discuss the management of the patient with other professionals (professionals i.e. JOSE CARLOS Nguyen, AUTOMAT WATCHER, lab, RT, psych nurse, medical social worker, hedge fund accountant, teacher, air defense control officer, supportive employment case manager)? Give summary @ -no Was smoking cessation discussed for >3mins.? @ -no Was critical care preformed (if so, how long)? @ -no Were there social determinants of health that impacted care today? How? (Homelessness, low income, unemployed, alcoholism, drug addiction, transportation, low edu. Level, literacy, decrease access to med. care, fci, rehab)? @ -none Was there de-escalation of care discussed even if they declined (Discuss DNR or withdrawal of care, Hospice)? DNR status @ -no What co-morbidities impacted this encounter? (DM, HTN, Smoking, COPD, CAD, Cancer, CVA, ARF, Chemo, Hep., AIDS, mental health diagnosis, sleep apnea, morbid obesity)? @ -none Was patient admitted / discharged? Hospital course, mention meds given and route, prescriptions, significant lab abnormalities, going to OR and other pertinent info. @ - 64 female to ER with fever hypoxia with COPD patient will be admitted for pneumonia. Admitted Undiagnosed new problem with uncertain prognosis? @ -no Drug Therapy requiring intensive monitoring for toxicity (Heparin, Nitro, Insulin, Cardizem)? @ -no Were any procedures done? @ -no Diagnosis/symptom? @ -Pneumonia hypoxia fever chest pain Acute, or Chronic, or Acute on Chronic? @ -Acute Uncomplicated (without systemic symptoms) or Complicated (systemic symptoms)? @ -Complicated Side effects of treatment? @ -no Exacerbation, Progression, or Severe Exacerbation? @ -exacerbation Poses a threat to life or bodily function? How? (Chest pain, [place], SD, pneumonia, PE, COPD, DKA, ARF, appy, cholecystitis, CVA, Diverticulitis, Homicidal, Suicidal, threat to staff... and all critical care pts) @ -yes with significant pneumonia hypoxia and fever (Gt Villegas) Reevaluation #5: 03/31/24 21:33 Differential Fever: Pneumonia, viral URI, endocarditis, myocarditis, pericarditis, otitis, sinusitis, peritonsillar Abscess, retropharyngeal Abscess, epiglottitis, peritonitis, appendicitis, Fadumo cystitis, diverticulitis, hepatitis, colitis, UTI, PID, TOA, pyelonephritis, prostatitis, epididymitis, meningitis, enc ephalitis, pulmonary embolism, CVA, thyroid storm, pancreatitis, adrenal crisis, cavernous sinus thrombosis, this is not meant to be an all-inclusive list. (Gt Villegas) - Consultations Consultation #1: Spoke with admitting physicians who agreed to admit this patient (Gt Villegas) Chest Pain MDM <Elizabeth Hargrove - Last Filed: 03/31/24 17:12> <Gt Villegas - Last Filed: 04/02/24 23:11> - MDM I completed the quick note portion of this chart signed Elizabeth Hargrove PA-C (Elizabeth Hargrove) 64 female to ER with fever hypoxia with COPD patient will be admitted for pneumonia (Gt Villegas) Critical Care Time Critical Care Time: Yes Total Critical Care Time: 31 <Gt Villegas - Last Filed: 04/02/24 23:11> Disposition <Elizabeth Hargrove - Last Filed: 03/31/24 17:12> Is patient prescribed a controlled substance at d/c from ED?: No Time of Disposition: 20:40 <Gt Villegas - Last Filed: 04/02/24 23:11> Clinical Impression: Chest pain, CHF (congestive heart failure) Disposition: ADMITTED IP TO THIS HOSP Condition: Fair
[2024-03-31 17:56] LABS: Basophils % (A) 1 %; Eosinophils # (A) 0.3 k/uL (0-0.7); Eosinophils % (A) 5 %; HCT 37.5 % (34.0-46.0); HGB 12.7 gm/dL (11.4-16.0); Lymphocytes # (A) 0.5 k/uL (1.0-4.8); Lymphocytes % (A) 8 %; MCH 29.7 pg (25.0-35.0); MCHC 33.8 g/dL (31.0-37.0); MCV 87.9 fL (80.0-100.0); Mean Platelet Volume 8.3; Monocytes # (A) 0.3 k/uL (0-1.0); Monocytes % (A) 4 %; Neutrophils # (A) 4.8 k/uL (1.3-7.7); Neutrophils % (A) 82 %; Platelet Count 181 k/uL (150-450); RBC 4.27 m/uL (3.80-5.40); RDW 13.4 % (11.5-15.5); WBC 5.9 k/uL (3.8-10.6)
--- NOTE | 2024-03-31 17:59 | XR ---
EXAMINATION TYPE: XR chest 2V DATE OF EXAM: 03/31/2024 5:35 PM CLINICAL INDICATION:Female, 64 years old with history of chest pain/cough; [facility] COMPARISON: Chest radiographs from TECHNIQUE: XR chest 2V Frontal and lateral views of the chest. FINDINGS: Lungs/Pleura: Low lung volumes are present. There is no evidence of pleural effusion, focal consolida tion, or pneumothorax. Pulmonary vascularity: Unremarkable. Heart/mediastinum: Cardiomediastinal silhouette is enlarged and stable. Musculoskeletal: No acute osseous pathology. IMPRESSION: Haziness to the lung bases possibly due to patient lung volumes. Correlate with serum BNP to exclude congestive heart failure.
[2024-03-31 18:07] LABS: Partial Thromboplastin Time 23.5 sec (22.0-30.0); Prothrombin Time 10.8 sec (10.0-12.5)
[2024-03-31 18:08] LABS: ALT 25 U/L (4-34); AST 23 U/L (14-36); African American GFR (CKD) 88 (>60 ml/min/1.73 sqM); Albumin 3.8 g/dL (3.5-5.0); Alkaline Phosphatase 103 U/L (38-126); Anion Gap 6 mmol/L; Blood Urea Nitrogen 10 mg/dL (7-17); Calcium 8.4 mg/dL (8.4-10.2); Carbon Dioxide 23 mmol/L (22-30); Chloride 105 mmol/L (98-107); Glucose 107 mg/dL (74-99); Non-African American GFR(CKD) 76 (>60 ml/min/1.73 sqM); Potassium 4.5 mmol/L (3.5-5.1); Sodium 134 mmol/L (137-145); Total Bilirubin 0.7 mg/dL (0.2-1.3); Total Protein 6.5 g/dL (6.3-8.2)
[2024-03-31] MEDS: SODIUM CHLORIDE 0.9% 500 ML 500 ML IV STA (19:55)
[2024-03-31] MEDS: ONDANSETRON 4 MG/2 ML VIAL IVP STA (19:58)
[2024-03-31] MEDS: diphenhydrAMINE 50 MG/ML 1 ML VIAL IVP STA (19:58)
[2024-03-31] MEDS ORDERED: NALOXONE 0.4 MG/ML 1 ML VIAL IV PRN (20:39)
[2024-03-31] MEDS ORDERED: ONDANSETRON 4 MG/2 ML VIAL IVP PRN (20:39)
[2024-03-31] MEDS ORDERED: MORPHINE SULFATE 4 MG/ML SYRINGE IV PRN (20:39)
[2024-03-31] MEDS: SODIUM CHLORIDE 0.9% 1,000 ML IV SCH (22:11)
[2024-04-01] MEDS: IPRATROPIUM-ALBUTEROL 3 ML NEB INHALATION STA (01:37)
[2024-04-01 08:02] LABS: Glucose,Whole Blood 103 mg/dL (70-110)
--- NOTE | 2024-04-01 10:52 | P.CRDCN ---
History of Present Illness History of present illness: HISTORY OF PRESENT ILLNESS: This is a 64-year-old female with a past medical history significant for CAD, hypertension, hyperlipidemia, diabetes, and obesity. Patient follows in the office with Dr. Ayoub. We have been asked to see the patient in consultation for chest pain. Patient examined at the bedside. She reports her whole family has been dealing with upper respiratory issues/congestion at home. She states on Thursday she began to have those same symptoms as her family members. She reports having chest heaviness yesterday. Denies any sweating. She reports nausea. She reports a productive cough that started a few days ago. The pain is worse with deep inspiration and with coughing. She states she took Nitro with no relief. DIAGNOSTICS: - EKG reveals sinus mechanism with no signs of acute ischemia - Chest xray haziness to the lung bases possibly due to patient lung volumes. - Laboratory data: WBC 5.9. Hemoglobin 12.7. Platelet count 181. Sodium 134. Potassium 4.5. BUN 10. Creatinine 0.82. Troponin negative x 3. proBNP 113. - Current home cardiac medications include Lipitor 80 mg at night, Imdur 30 mg at night, atenolol 25 mg daily, Plavix 75 mg daily, Zetia 10 mg daily, losartan 50 mg daily. - Most recent echocardiogram obtained in June 2021 revealing ejection fraction 55%, moderate LVH - Cardiac catheterization history: 03/29/[address] Sánchez revealing the LAD calcified lesion of approximately 30 mm mid LAD 50% stenosis, normal left-sided filling pressures, normal IFR/FFR REVIEW OF SYSTEMS: At the time of my exam: CONSTITUTIONAL: Denies fever or chills. HEENT: Denies blurred vision, vision changes, or eye pain. Denies hemoptysis CARDIOVASCULAR: Denies chest pain. Denies orthopnea. Denies PND. Denies palpitations RESPIRATORY: Denies shortness of breath. GASTROINTESTINAL: Denies abdominal pain. Denies nausea or vomiting. HEMATOLOGIC: Denies bleeding disorders. GENITOURINARY: Denies any blood in urine. SKIN: Denies pruitis. Denies rash. PHYSICAL EXAM: VITAL SIGNS: Reviewed. GENERAL: Well-developed in no acute distress. HEENT: Head is normocephalic. Pupils are equal, round. Sclerae anicteric. Mucous membranes of the mouth are moist. Neck supple. No JVD or thyromegaly LUNGS: Respirations even and unlabored. Lungs essentially clear to auscultation bilaterally. HEART: Regular rate and rhythm. S1 and S2 heard. ABDOMEN: Soft. Nondistended. Nontender. EXTREMITIES: Normal range of motion. No clubbing or cyanosis. Peripheral pulses intact. No lower extremity edema NEUROLOGIC: Awake and alert. Oriented x 3. ASSESSMENT: Chest pain, atypical, likely related to URI/bronchitis/viral infection Upper respiratory infection Coronary artery disease with 50% mid LAD stenosis with normal IFR/FFR, per cardiac catheterization 03/29/2024 Hypertension Hyperlipidemia Diabetes Aspirin allergy Obesity: BMI 36.0 PLAN: An acute coronary event has been ruled out No need to repeat echo Resume home cardiac medications Patient may be discharged home this afternoon from a cardiac standpoint Patient to follow up with Dr. Ayoub post discharge Nurse practitioner note has been reviewed by physician. Signing provider agrees with the documented findings, assessment, and plan of care documented by LEATHER TOOLER as a scribe. Past Medical History Past Medical History: Diabetes Mellitus, GERD/Reflux, Hyperlipidemia, Hypertension, Renal Disease Additional Past Medical History / Comment(s): Pt had positive stress test. COLON POLYPS., DIVERTICULITIS., VERTIGO, KIDNEY STONE, UTI's History of Any Multi-Drug Resistant Organisms: ESBL Date of last positivie culture/infection: 09/01/23 MDRO Source:: Urine Past Surgical History: Section, Cholecystectomy Past Anesthesia/Blood Transfusion Reactions: Family History of Problems w/ Anesthesia, Motion Sickness Additional Past Anesthesia/Blood Transfusion Reaction / Comment(s): BLOOD NEPHEW HAS MALIGNANT HYPERTHERMIA. Past Psychological History: Depression Smoking Status: Former smoker - Past Family History Father Family Medical History: Cancer, Liver Disease Additional Family Medical History / Comment(s): Esophageal cancer Mother Family Medical History: Hypertension Medications and Allergies Home Medications Medication Instructions Recorded Confirmed Type atenoloL 25 mg PO DAILY 10/20/16 03/31/24 History metFORMIN HCL [Glucophage] 850 mg PO BID 10/20/16 03/31/24 History Atorvastatin [Lipitor] 80 mg PO HS 07/27/23 03/31/24 History Ezetimibe [Zetia] 10 mg PO DAILY 07/27/23 03/31/24 History Losartan [Cozaar] 50 mg PO DAILY 07/27/23 03/31/24 History Sertraline [Zoloft] 100 mg PO DAILY 07/27/23 03/31/24 History Clopidogrel [Plavix] 75 mg PO DAILY 03/25/24 03/31/24 History Benzonatate [Tessalon Perle] 200 mg PO DIRECTED PRN 03/31/24 03/31/24 History Isosorbide Mononitrate ER [Imdur] 30 mg PO HS 03/31/24 03/31/24 History Semaglutide [Ozempic] 2 mg SQ TU 03/31/24 03/31/24 History Allergies Allergy/AdvReac Type Severity Reaction Status Date / Time acetaminophen [From Tylenol] Allergy Rash/Hives Verified 03/31/24 19:49 aspirin Allergy Rash/Hives Verified 03/31/24 19:49 Physical Exam Vitals: Vital Signs Temp Pulse Resp BP Pulse Ox 04/01/24 06:54 74 16 122/67 93 L 04/01/24 04:30 85 18 127/76 93 L 04/01/24 01:43 77 18 04/01/24 01:37 74 18 03/31/24 23:00 76 16 113/62 95 03/31/24 21:00 65 16 110/69 92 L 03/31/24 20:38 71 16 119/70 91 L 03/31/24 19:45 98.9 F 63 16 98/53 93 L 03/31/24 16:42 99.6 F 86 16 106/58 95 Intake and Output 03/31/24 04/01/24 04/01/24 22:59 06:59 14:59 Other: Weight 104.326 kg Results 03/31/24 17:40 03/31/24 17:40 Cardiac Enzymes 03/31/24 03/31/24 03/31/24 Range/Units 17:40 17:40 21:15 AST 23 (14-36) U/L Troponin I 0.018 0.023 (0.000-0.034) ng/mL 04/01/24 Range/Units 00:50 AST (14-36) U/L Troponin I 0.020 (0.000-0.034) ng/mL Coagulation 03/31/24 Range/Units 17:40 PT 10.8 (10.0-12.5) sec APTT 23.5 (22.0-30.0) sec CBC 03/31/24 Range/Units 17:40 WBC 5.9 (3.8-10.6) k/uL RBC 4.27 (3.80-5.40) m/uL Hgb 12.7 (11.4-16.0) gm/dL Hct 37.5 (34.0-46.0) % Plt Count 181 (150-450) k/uL Comprehensive Metabolic Panel 03/31/24 Range/Units 17:40 Sodium 134 L (137-145) mmol/L Potassium 4.5 (3.5-5.1) mmol/L Chloride 105 (98-107) mmol/L Carbon Dioxide 23 (22-30) mmol/L BUN 10 (7-17) mg/dL Creatinine 0.82 (0.52-1.04) mg/dL Glucose 107 H (74-99) mg/dL Calcium 8.4 (8.4-10.2) mg/dL AST 23 (14-36) U/L ALT 25 (4-34) U/L Alkaline Phosphatase 103 (38-126) U/L Total Protein 6.5 (6.3-8.2) g/dL Albumin 3.8 (3.5-5.0) g/dL Current Medications Generic Name Dose Route Start Last Admin Trade Name Freq PRN Reason Stop Dose Admin Sodium Chloride 1,000 mls @ 20 mls/hr 03/31/24 20:45 03/31/24 22:11 Saline 0.9% IV 20 mls/hr .Q24H RENAE Administration Morphine Sulfate 4 mg 03/31/24 20:39 Morphine Sulfate 4 Mg/Ml Syringe IV Q4HR PRN Severe Pain (Scale 7 to 10) Naloxone HCl 0.2 mg 03/31/24 20:39 Naloxone 0.4 Mg/Ml 1 Ml Vial IV Q2M PRN Opioid Reversal Ondansetron HCl 4 mg 03/31/24 20:39 Ondansetron 4 Mg/2 Ml Vial IVP Q8HR PRN Nausea And Vomiting Intake and Output 03/31/24 04/01/24 04/01/24 22:59 06:59 14:59 Other: Weight 104.326 kg 03/31/24 17:40 03/31/24 17:40
[2024-04-01] MEDS: EZETIMIBE 10 MG TAB PO SCH (11:34)
[2024-04-01] MEDS: CLOPIDOGREL 75 MG TAB PO SCH (11:34)
[2024-04-01] MEDS: LOSARTAN 50 MG TAB PO SCH (11:34)
[2024-04-01 12:17] LABS: Glucose,Whole Blood 94 mg/dL (70-110)
[2024-04-01] MEDS: SERTRALINE 100 MG TAB PO SCH (14:42)
[2024-04-01] MEDS: atenoloL 25 MG TAB PO SCH (14:42)
[2024-04-01 14:58] VITALS: BP 110/68; PULSE 69; RESP 18; TEMP 98.4
[2024-04-01] MEDS ORDERED: NITROGLYCERIN SL TABS 0.4 MG TAB SUBLINGUAL PRN (15:43)
--- NOTE | 2024-04-01 15:43 | P.HPIM ---
History of Present Illness H&P Date: 04/01/24 Chief Complaint: Chest pain This is history and physical and discharge summary HISTORY OF PRESENT ILLNESS: This is a 64-year-old female with a previous medical history significant for hypertension and hypertensive cardiovascular disease, hyperlipidemia, history of diabetes mellitus type 2, history of obesity with obstructive sleep apnea, patient was recently diagnosed with coronary artery disease after a positive CTA of the coronary arteries with calcium score, that resulted in the abnormal myocardial perfusion imaging, ended up going for left heart catheterization with Dr. Sánchez that was done on March 30, 2024, and that did show evidence of 50% stenosis of the LAD, she definitely does have lesion in the LAD, normal left main, normal LCx, she did have FFR and IFR were negative, patient at that time it was recommended to be started on isosorbide mononitrate, and continue aggressive medical therapy patient was started on Plavix, because of aspirin sensitivity, patient was sent home, patient came to the emergency department yesterday with left-sided chest pain suggestive of angina, she was somewhat short of breath, she had a chest x-ray that showed some minimal pulmonary vascular congestion, EKG did not show evidence of acute abnormalities, cardiac enzymes were negative, but because of the presentation she was admitted to the hospital with cardiology consultation, they contacted Dr. Sánchez who recommended for the patient to be admitted and had serial enzymes, and try to adjust her medical therapy. REVIEW OF SYSTEMS: Constitutional: No documented fever, no chills, no night sweats. No weight change. No weakness, fatigue or lethargy. No daytime sleepiness. EENT: No headache. No blurred vision or double vision, no loss of vision. No loss of Hearing, no ringing in the ears, no dizziness. No nasal drainage or congestion. No epistaxis. No sore throat. Lungs: No shortness of breath, no cough, no sputum production. No wheezing. Reports dyspnea with activity. Cardiovascular: No chest pain, no lower extremity edema. No palpitations. No paroxysmal nocturnal dyspnea. No orthopnea. No lightheadedness or dizziness. No syncopal episodes. Abdominal: Reports abdominal pain. No nausea, vomiting. No diarrhea. No constipation. No bloody or tarry stools reports loss of appetite. Genitourinary: No dysuria, increased frequency, urgency. No urinary retention. Musculoskeletal: No myalgias. No muscle weakness, no gait dysfunction, no frequent falls. No back pain. No neck pain. Integumentary: No wounds, no lesions. No rash or pruritus. No unusual bruising. No change in hair or nails. Neurologic: No aphasia. No facial droop. No change in mentation. No head injury. No headache. No paralysis. No paresthesia. Psychiatric: No depression. No anxiety. No mood swings. Endocrine: No abnormal blood sugars. No weight change. PAST MEDICAL HISTORY: Hypertension and hypertensive cardiovascular disease. Mixed hyperlipidemia. Diabetes mellitus type 2. Coronary artery disease with 50% stenosis of the LAD. Obesity with obstructive sleep apnea. Diverticulosis PAST SURGICAL HISTORY: Tonsillectomy 1963 Right small finger repair 1971 1996 Cholecystectomy 2005 Colonoscopy 12/25/2023 SOCIAL HISTORY: Patient is a lifelong non-smoker, she denies any alcohol ingestion, she denies any drug use or abuse. She lives with her . FAMILY HISTORY: Father from liver cirrhosis as well as throat cancer, mother is alive 82-year-old with hypertension and hypothyroidism. Patient had a brother who at the age of 58 from myocardial infarction, patient has 1 sister 66-year-old alive and well patient has 2 daughters no major medical problems. PHYSICAL EXAMINATION: General: 64-year-old female laying down in bed in no apparent distress. HEENT: Head is atraumatic, normocephalic, pupils were equal round reactive to light and recommendation, extraocular muscle movement were intact, sclera nonicteric, conjunctivae were pale, mucous membranes of the mouth are somewhat dry. Neck: Supple, no JVP, normal carotid upstroke bilaterally, no lymphadenopathy. Chest: Decreased breath sounds at the bases, few rhonchi, no expiratory wheezes, no chest wall tenderness, no intercostal retractions. Heart: First heart sound is normal, second heart sound is normal there is systolic ejection murmur 2/6 located in the left sternal border. Abdomen: Soft, nontender, nondistended, positive bowel sounds. Extremities: There is no edema no calf tenderness DP +2 bilaterally. Neurologic examination: Patient is awake alert and oriented x3, cranial nerves II-12 appear grossly intact, muscle power were 5 out of 5 in upper extremities and 5 out of 5 in bilateral lower extremities, deep tendon reflexes normal bilaterally. ASSESSMENT AND PLAN: 1. Chest pain in a patient with underlying CAD status post recent left heart catheterization 03/30/2024 that showed evidence of 50% stenosis of the LAD, with negative FFR and IFR, recommended for the patient to be admitted to the hospital by her aerospace assembler, cardiac enzymes were negative x 3, EKG did not show evidence of acute abnormalities, does appear to have a significant and stable angina on and off that is exertional, patient was started on isosorbide mononitrate 30 mg at bedtime, continue atenolol 25 mg orally once every day, continue Plavix 75 mg once every day, atorvastatin 80 mg once every day and Zetia 10 mg once every day, keep LDL cholesterol less than 55. Cardiology consultation appreciated. 2. Hypertension and hypertensive cardiovascular disease. Continue patient on atenolol 25 mg once every day, losartan 50 mg orally once every day, monitor the patient blood pressure very closely. 3. Mixed hyperlipidemia. Continue atorvastatin 80 mg once every day, continue Zetia 10 mg once every day, monitor lipid panel, keep LDL 55 or less. 4. Diabetes mellitus type 2. Hold metformin for another 24 hours after the left heart catheterization, continue semaglutide once every week monitor the patient blood glucose level while she is in the hospital. 5. Obesity with obstructive sleep apnea continue with weight loss, continue wi th CPAP machine. 6. Anxiety disorder. Continue sertraline 100 mg orally once every day. 7. DVT prophylaxis. Heparin 5000 units subcutaneously every 8 hours. Bilateral knee-high LAUREEN hose. 8. GI prophylaxis. Continue patient on Protonix 40 mg orally once every day. 9. Observation. 10. Full code. 11. Patient is stable to be discharged home and follow-up with us as an outpatient next week she is to follow-up with cardiology as an outpatient next week as well. Past Medical History Past Medical History: Diabetes Mellitus, GERD/Reflux, Hyperlipidemia, Hypertension, Renal Disease Additional Past Medical History / Comment(s): Pt had positive stress test. COLON POLYPS., DIVERTICULITIS., VERTIGO, KIDNEY STONE, UTI's History of Any Multi-Drug Resistant Organisms: ESBL Date of last positivie culture/infection: 09/01/23 MDRO Source:: Urine Past Surgical History: Section, Cholecystectomy Past Anesthesia/Blood Transfusion Reactions: Family History of Problems w/ Anesthesia, Motion Sickness Additional Past Anesthesia/Blood Transfusion Reaction / Comment(s): BLOOD NEPHEW HAS MALIGNANT HYPERTHERMIA. Past Psychological History: Depression Smoking Status: Former smoker - Past Family History Father Family Medical History: Cancer, Liver Disease Additional Family Medical History / Comment(s): Esophageal cancer Mother Family Medical History: Hypertension Medications and Allergies Home Medications Medication Instructions Recorded Confirmed Type atenoloL 25 mg PO DAILY 10/20/16 03/31/24 History metFORMIN HCL [Glucophage] 850 mg PO BID 10/20/16 03/31/24 History Atorvastatin [Lipitor] 80 mg PO HS 07/27/23 03/31/24 History Ezetimibe [Zetia] 10 mg PO DAILY 07/27/23 03/31/24 History Losartan [Cozaar] 50 mg PO DAILY 07/27/23 03/31/24 History Sertraline [Zoloft] 100 mg PO DAILY 07/27/23 03/31/24 History Clopidogrel [Plavix] 75 mg PO DAILY 03/25/24 03/31/24 History Benzonatate [Tessalon Perle] 200 mg PO DIRECTED PRN 03/31/24 03/31/24 History Isosorbide Mononitrate ER [Imdur] 30 mg PO HS 03/31/24 03/31/24 History Semaglutide [Ozempic] 2 mg SQ TU 03/31/24 03/31/24 History Allergies Allergy/AdvReac Type Severity Reaction Status Date / Time acetaminophen [From Tylenol] Allergy Rash/Hives Verified 03/31/24 19:49 aspirin Allergy Rash/Hives Verified 03/31/24 19:49 Physical Exam Vitals: Vital Signs Temp Pulse Pulse Resp BP BP Pulse Ox 04/01/24 11:42 63 121/73 04/01/24 08:00 17 04/01/24 07:55 98.9 F 71 17 134/74 92 L 04/01/24 06:54 74 16 122/67 93 L 04/01/24 04:30 85 18 127/76 93 L 04/01/24 01:43 77 18 04/01/24 01:37 74 18 03/31/24 23:00 76 16 113/62 95 03/31/24 21:00 65 16 110/69 92 L 03/31/24 20:38 71 16 119/70 91 L 03/31/24 19:45 98.9 F 63 16 98/53 93 L 03/31/24 16:42 99.6 F 86 16 106/58 95 Intake and Output 03/31/24 04/01/24 04/01/24 22:59 06:59 14:59 Intake Total 236 Balance 236 Intake: Oral 236 Other: Voiding Method Toilet Weight 104.326 kg Results CBC & Chem 7: 03/31/24 17:40 03/31/24 17:40 Labs: Abnormal Lab Results - Last 24 Hours (Table) 03/31/24 03/31/24 Range/Units 17:40 17:40 Lymphocytes # 0.5 L (1.0-4.8) k/uL Sodium 134 L (137-145) mmol/L Glucose 107 H (74-99) mg/dL
[2024-04-01] MEDS ORDERED: ISOSORBIDE MONONITRATE ER 30 MG TAB.ER.24H PO SCH (21:00)
[2024-04-01] MEDS ORDERED: ATORVASTATIN 80 MG TAB PO SCH (21:00)
[2024-04-05] MEDS ORDERED: NON FORMULARY DRUG (Semaglutide [Ozempic] 2 MG/0.75 ML Pen.Injctr) SQ SCH (09:00)
== END 2024-04-01 17:03 | disposition home or self-care (01) ==
LOC: EC 16:41 → 6NMEDSUR 20:39
PROVIDERS: ADMIT Internal Medicine; ATTEND Internal Medicine
DX: R07.89 Other chest pain (principal); I10 Essential (primary) hypertension; E78.5 Hyperlipidemia, unspecified; E11.9 Type 2 diabetes mellitus without complications; G47.33 Obstructive sleep apnea (adult) (pediatric); E66.9 Obesity, unspecified; F41.9 Anxiety disorder, unspecified; E78.2 Mixed hyperlipidemia; I25.10 Atherosclerotic heart disease of native coronary artery without angina pectoris; Z90.49 Acquired absence of other specified parts of digestive tract; Z88.6 Allergy status to analgesic agent; Z87.891 Personal history of nicotine dependence; Z87.442 Personal history of urinary calculi; Z87.19 Personal history of other diseases of the digestive system; Z82.49 Family history of ischemic heart disease and other diseases of the circulatory system; Z80.8 Family history of malignant neoplasm of other organs or systems; Z80.0 Family history of malignant neoplasm of digestive organs; Z79.899 Other long term (current) drug therapy; Z79.84 Long term (current) use of oral hypoglycemic drugs; Z79.02 Long term (current) use of antithrombotics/antiplatelets; Z68.36 Body mass index [BMI] 36.0-36.9, adult
CPT/HCPCS: 96374; 99285; 36415; 94640; 93005; 83880; 80053; 84484 ×2; 85025; 85610; 85730; 87636; 71046; G0378 ×2; J1200; J2405

== ENCOUNTER → 2024-04-14 | Outpatient (CLI) | payer OTHER ==
--- NOTE | 2024-04-15 18:46 | MM ---
Reason for Exam: Screening (asymptomatic). Last mammogram was performed 1 year(s) and 5 month(s) ago. Patient History: Menarche at age 12. First Full-Term at age 29. Postmenopausal. Risk Values: Katie 5 year model risk: 1.8%. NCI Lifetime model risk: 7.2%. Prior Study Comparison: 09/07/2020 Bilateral Screening Mammogram, [facility]. 10/08/2021 Bilateral Screening Mammogram, [facility]. 12/09/2022 Bilateral MG 3D screening mammo w/cad, [facility]. Tissue Density: There are scattered areas of fibroglandular density. Findings: Analyzed By CAD. Chronic nodularity on the left. There is no suspicious group of microcalcifications or new suspicious mass in either breast. Overall Assessment: Benign, BI-RAD 2 Management: Screening Mammogram of both breasts in 1 year. . Patient should continue monthly self-breast exams. A clinical breast exam by your physician is recommended on an annual basis. This exam should not preclude additional follow-up of suspicious palpable abnormalities. Note on Katie scores and lifetime risk: 1. A Katie score greater than 3% is considered moderate risk. If this is the case, consider specialist referral to assess eligibility for a risk reducing agent. 2. If overall lifetime risk for the development of breast cancer is 20% or higher, the patient may qualify for future screening with alternating mammogram and breast MRI. Electronically signed and approved by: Yoselin Jewell M.D. Radiologist
== END | disposition home or self-care (01) ==
LOC: RADMAMWWP 16:07
PROVIDERS: ATTEND Internal Medicine
DX: Z12.31 Encounter for screening mammogram for malignant neoplasm of breast (principal); Z78.0 Asymptomatic menopausal state
CPT/HCPCS: 77063; 77067